=== PATIENT | female | born 1975 | race Caucasian/White ===

== ENCOUNTER 2016-07-25 06:19 | Emergency (ER) | payer BC, OTHER ==
[~2016-07-25] VITALS: Ht 154.9 cm; Wt 51.3 kg
[~2016-07-25 06:19] MED LIST: AMOX500C3 PO; ASTN; BACL10TA PO; BUPR-79 PO; BUSP15TA70 PO; CETI10TA10 PO; DICL1GEL12 TOP; IMTUNK PO; LINA1CAP2 PO; METH500T37 PO; METO25TA3 PO; METR0.7527 TOP; ONDA4TAB7 SL; PANT40TA PO; RIZA10TA19 PO
[2016-07-25 06:21] VITALS: Ht 154.9 cm; Wt 51.3 kg
[2016-07-25] MEDS ORDERED: HYDROmorphone INJ 1 MG/ML SYR IV STA (06:42)
[2016-07-25] MEDS ORDERED: ONDANSETRON INJ 2 MG/ML 2 ML VIAL IV STA (06:42)
[2016-07-25] MEDS ORDERED: SODIUM CHLORIDE 0.9% 1000ML 1,000 ML IV STA (06:42)
[2016-07-25 06:57] LABS: BASO % 0.1 %; BASO ABS # 0.02 K/uL (0-0.2); COMPLETE YES; EOS % 0.4 %; HEMATOCRIT 36.9 % (37-47); IG% 0.4 %; LYMPH % 10.3 %; LYMPH ABS # 1.44 K/uL (1.2-3.4); MEAN CELL VOLUME 89.6 fL (80-100); MEAN CORPUSCULAR HEMOGLOBIN 30.3 pg (25-34); MEAN CORPUSCULAR HGB CONC 33.9 g/dl (32-36); MEAN PLATELET VOLUME 9.1 fL (7.4-10.4); MONO % 8.6 %; NEUT % 80.2 %; PLATELET COUNT 342 K/uL (130-400); RED BLOOD COUNT 4.12 M/uL (4.2-5.4); WHITE BLOOD COUNT 13.99 K/uL (4.8-10.8)
[2016-07-25] MEDS ORDERED: LANS30CA63 PO (06:58)
[2016-07-25] MEDS ORDERED: ZFRODT4HP PO (06:58)
[2016-07-25] MEDS ORDERED: IMT100 PO (06:58)
--- NOTE | 2016-07-25 06:58 | EMERGENCY ROOM VISIT NOTE ---
History Report prepared by Sarah: Rufus Carbajal Under the Supervision of: Dr. Casimiro Delong M.D. First contact with patient: 06:31 Chief Complaint: ABDOMINAL PAIN Stated Complaint: PAIN IN LWR STOMACH, BLOOD IN URINE History of Present Illness The patient is a 41 year old female who presents to the Emergency Room with complaints of persistent right lower quadrant abdominal pain that started at 0515 this morning. The pain is rated 7/10 in severity. The patient also complains of hematuria and nausea starting at the same time as the abdominal pain. The patient's symptoms are consistent with past kidney stones. She has had a CT scan of her abdomen before. Source of History: patient Onset: 0515 this morning Position: abdomen (RLQ) Symptom Intensity: 7/10 Timing: other (persistent) Associated Symptoms: + nausea, + urinary symptoms Review of Systems See HPI for pertinent positives & negatives. A total of 10 systems reviewed and were otherwise negative. Past Medical & Surgical Medical Problems: (1) Anxiety (2) Depression (3) Gastroesophageal reflux disease (4) IRRITABLE BOWEL SYNDROME (5) Kidney stone Family History No pertinent family history Social History Smoking Status: Never Smoker Alcohol Use: none Marital Status: Housing Status: lives with family Occupation Status: employed Current/Historical Medications Scheduled Amoxicillin (Amoxil), 500 MG PO TID Bupropion (Wellbutrin Sr), 150 MG PO BID Buspirone Hcl (Buspar), 7.5 MG PO BID Lansoprazole (Prevacid), 30 MG PO QAM Metoprolol Succinate (Toprol Xl), 37.5 MG PO DAILY Sulfa/Trimethoprim (Bactrim Ds 800MG/160MG), 1 TAB PO BID Scheduled PRN Baclofen (Lioresal), 10 MG PO HS PRN for ABD PAIN Linaclotide (Linzess), 290 MCG PO DAILY PRN for BOWEL Methocarbamol (Robaxin), 500 MG PO DAILY PRN for SPASMS/PAIN Metronidazole (Topical) (Metrogel), 1 APPLN TOP for MD ORDER Ondansetron (Ondansetron Odt), 1-2 TABS PO TID PRN for Nausea Oxycodone/Acetaminophen 5MG/325MG (Percocet 5MG/325MG), 1-2 TAB PO Q4H PRN for Pain Sumatriptan Succinate (Imitrex), 100 MG PO UD PRN for Headache Allergies Coded Allergies: Erythromycin (Verified Allergy, Unknown, UNKNOWN, 07/25/16) Macrolides (Verified Allergy, Unknown, 07/25/16) Physical Exam Vital Signs Date Time Temp Pulse Resp B/P Pulse Ox O2 Delivery O2 Flow Rate FiO2 07/25/16 13:05 96 18 94/55 100 07/25/16 13:01 94/55 07/25/16 12:45 88 16 83/47 98 07/25/16 12:31 83 18 98/39 99 Room Air 07/25/16 10:38 36.5 78 18 120/78 99 Room Air 07/25/16 08:40 103 18 104/68 98 Room Air 07/25/16 06:21 36.6 116 24 119/65 100 Room Air Physical Exam GENERAL: Patient is a healthy-appearing well-nourished HEAD: Normocephalic atraumatic EYES: Ocular movements intact pupils equal and react to light OROPHARYNX mucous membranes are moist no exudates present no erythema or edema present NECK: Supple no nuchal rigidity CHEST: Good equal expansion LUNGS: Clear and equal to auscultation CARDIAC: Normal S1 and S2 ABDOMEN: Soft nontender no guarding. Benign abdomen. BACK: No CVA tenderness EXTREMITIES: No pain upon palpation normal muscle strength in all groups no clubbing cyanosis or edema NEURO: Patient is following commands is answering questions appropriately. Alert and oriented x3 Cranial Nerves 2-12 grossly intact Medical Decision & Procedures ER Provider Diagnostic Interpretation: Radiology results as stated below per my review and radiologist interpretation: KUB CLINICAL HISTORY: Left sided flank pain. Hematuria. COMPARISON STUDY: CT of the abdomen and pelvis May 12, 2012 and abdominal series December 26, 2013. FINDINGS: The bowel gas pattern is normal. There is a moderate amount of stool within the colon. Several left pelvic calcifications are unchanged since prior exam of November 04, 2013. No ureteral calculi are identified although sensitivity is diminished given stool within the colon. There may be punctate right renal calculi. IMPRESSION: 1. No ureteral calculi identified although sensitivity significantly diminished on this exam due to stool within the colon. 2. Possible punctate right renal calculi. Electronically signed by: Juan Manuel Waldrop M.D. 07/25/2016 7:45 AM Dictated Date/Time: 07/25/2016 7:42 AM EXAMINATION: RENAL ULTRASOUND CLINICAL HISTORY: Left flank pain COMPARISON STUDY: CT scan dated 05/12/2012 FINDINGS: The right kidney measures 10 cm. The left kidney measures 9.9 cm. There is no evidence of hydronephrosis. There are no renal masses. There is a 3 mm echogenic focus within the right kidney, likely representing a calculus. No bladder abnormalities are visualized. Bilateral ureteral jets were visualized. IMPRESSION : 1. Suspected 3 mm right renal calculus 2. No renal masses identified. No evidence of hydronephrosis. Electronically signed by: Dion Raines M.D. 07/25/2016 8:32 AM Dictated Date/Time: 07/25/2016 8:[address] ABD/PELVIS IV AND ORAL CONT CLINICAL HISTORY: Diffuse abdominal pain COMPARISON STUDY: 05/12/2012 TECHNIQUE: Following the IV administration of 92 mL of Optiray-320, CT scan of the abdomen and pelvis was performed from the lung bases to the proximal femurs. Images are reviewed in the axial, sagittal, and coronal planes. IV contrast was administered without complication. CT DOSE: 321.41 mGycm FINDINGS: Lower chest: There are minor dependent atelectatic changes. Liver: The contrast-enhanced liver is normal in size, contour, and attenuation. There is no intrahepatic biliary ductal dilatation. The hepatic veins and portal veins are patent. Gallbladder: Unremarkable. Spleen: Normal in size and attenuation. Pancreas: Unremarkable. Adrenal glands: Unremarkable. Kidneys: 2 punctate nonobstructing right renal calculi are visualized. There is no hydronephrosis. There is a 4 mm left renal hypodensity likely representing a cyst. Bowel: There are no transition zones indicate bowel obstruction. There is no acute diverticulitis. The appendix is felt to be normal. Peritoneum: There is no intraperitoneal free air or abdominal ascites. Vasculature: The abdominal aorta is normal in course and caliber. Adenopathy: None. Pelvic viscera: There is a 15 mm involuting left ovarian follicle. There is borderline bladder wall thickening Skeletal structures: No destructive osseous lesions are seen. IMPRESSION: 1. No evidence of bowel obstruction. No evidence of free air 2. Normal appendix 3. No evidence of acute diverticulitis 4. Nonobstructing punctate right renal calculus 5. Borderline bladder wall thickening. Correlation with urinalysis is recommended to exclude a cystitis Electronically signed by: Dion Raines M.D. 07/25/2016 12:18 PM Dictated Date/Time: 07/25/2016 12:13 PM Laboratory Results 07/25/16 06:35 Red Blood Count 4.12, Mean Corpuscular Volume 89.6, Mean Corpuscular Hemoglobin 30.3, Mean Corpuscular Hemoglobin Concent 33.9, Mean Platelet Volume 9.1, Neutrophils (%) (Auto) 80.2, Lymphocytes (%) (Auto) 10.3, Monocytes (%) (Auto) 8.6, Eosinophils (%) (Auto) 0.4, Basophils (%) (Auto) 0.1, Neutrophils # (Auto) 11.22, Lymphocytes # (Auto) 1.44, Monocytes # (Auto) 1.21, Eosinophils # (Auto) 0.05, Basophils # (Auto) 0.02 07/25/16 06:35 Test 07/25/16 06:35 07/25/16 07:30 White Blood Count 13.99 K/uL (4.8-10.8) Red Blood Count 4.12 M/uL (4.2-5.4) Hemoglobin 12.5 g/dL (12.0-16.0) Hematocrit 36.9 % (37-47) Mean Corpuscular Volume 89.6 fL (80-100) Mean Corpuscular Hemoglobin 30.3 pg (25-34) Mean Corpuscular Hemoglobin Concent 33.9 g/dl (32-36) Platelet Count 342 K/uL (130-400) Mean Platelet Volume 9.1 fL (7.4-10.4) Neutrophils (%) (Auto) 80.2 % Lymphocytes (%) (Auto) 10.3 % Monocytes (%) (Auto) 8.6 % Eosinophils (%) (Auto) 0.4 % Basophils (%) (Auto) 0.1 % Neutrophils # (Auto) 11.22 K/uL (1.4-6.5) Lymphocytes # (Auto) 1.44 K/uL (1.2-3.4) Monocytes # (Auto) 1.21 K/uL (0.11-0.59) Eosinophils # (Auto) 0.05 K/uL (0-0.5) Basophils # (Auto) 0.02 K/uL (0-0.2) RDW Standard Deviation 46.1 fL (36.4-46.3) RDW Coefficient of Variation 14.0 % (11.5-14.5) Immature Granulocyte % (Auto) 0.4 % Immature Granulocyte # (Auto) 0.05 K/uL (0.00-0.02) Anion Gap 9.0 mmol/L (3-11) Est Creatinine Clear Calc Drug Dose 61.5 ml/min Estimated GFR () 92.0 Estimated GFR (Non- 79.4 BUN/Creatinine Ratio 11.0 (10-20) Calcium Level 9.2 mg/dl (8.5-10.1) Total Bilirubin 0.4 mg/dl (0.2-1) Direct Bilirubin 0.1 mg/dl (0-0.2) Aspartate Amino Transf (AST/SGOT) 11 U/L (15-37) Alanine Aminotransferase (ALT/SGPT) 16 U/L (12-78) Alkaline Phosphatase 58 U/L (45-117) Total Protein 7.7 gm/dl (6.4-8.2) Albumin 3.8 gm/dl (3.4-5.0) Lipase 144 U/L (73-393) Urine Color DK YELLOW Urine Appearance TURBID (CLEAR) Urine pH >= 9.0 (4.5-7.5) Urine Specific [place] 1.006 (1.000-1.030) Urine Protein NEG (NEG) Urine Glucose (UA) NEG (NEG) Urine Ketones NEG (NEG) Urine Occult Blood 3+ (NEG) Urine Nitrite NEG (NEG) Urine Bilirubin NEG (NEG) Urine Urobilinogen NEG (NEG) Urine Leukocyte Esterase LARGE (NEG) Urine WBC (Auto) >30 /hpf (0-5) Urine RBC (Auto) >30 /hpf (0-4) Urine Hyaline Casts (Auto) /lpf (0-5) Urine Epithelial Cells (Auto) >30 /lpf (0-5) Urine Bacteria (Auto) 4+ (NEG) Urine Pathogenic Casts /lpf (0) Urine Test NEG (NEG) Labs reviewed by ED physician. Medications Administered Medications (Trade) Dose Ordered Sig/Ayo Route Start Time Stop Time Status Last Admin Dose Admin Hydromorphone HCl 1 mg 1 mg NOW STAT IV 07/25/16 06:42 07/25/16 06:44 DC 07/25/16 06:53 1 MG Sodium Chloride (Nss 1000ml) 1,000 ml @ 999 mls/hr Q1H1M STAT IV 07/25/16 06:42 07/25/16 07:42 DC 07/25/16 06:51 999 MLS/HR Ondansetron HCl (Zofran Inj) 4 mg NOW STAT IV 07/25/16 06:42 07/25/16 06:44 DC 07/25/16 06:53 4 MG Diphenhydramine HCl (Benadryl Inj) 25 mg NOW STAT IV 07/25/16 08:31 07/25/16 08:32 DC 07/25/16 08:50 25 MG Ceftriaxone Sodium (Rocephin Inj) 1 gm NOW STAT IV 07/25/16 08:46 07/25/16 08:48 DC 07/25/16 09:05 1 GM Tamsulosin HCl (Flomax Cap) 0.4 mg NOW ONCE PO 07/25/16 09:00 07/25/16 09:01 DC 07/25/16 09:04 0.4 MG Ketorolac Tromethamine (Toradol Inj) 30 mg NOW STAT IV 07/25/16 08:51 07/25/16 08:53 DC 07/25/16 09:04 30 MG Morphine Sulfate (MoRPHine SULFATE INJ) 4 mg NOW STAT IV 07/25/16 08:51 07/25/16 08:53 DC 07/25/16 09:05 4 MG Metoclopramide HCl (Reglan Inj) 10 mg NOW STAT IV 07/25/16 08:51 07/25/16 08:53 DC 07/25/16 09:04 10 MG Trimethoprim/ Sulfamethoxazole (Septra Ds 800/ 160MG Tab) 1 tab NOW STAT PO 07/25/16 09:01 07/25/16 09:02 DC 07/25/16 09:07 1 TAB ED Course 0641: Past medical records reviewed. The patient was evaluated in room A3. A complete history and physical examination was performed. 0642: Zofran 4 mg IV, NSS 1000 ml @ 999 mls/hr, Dilaudid 1 mg IV. 0718: The patient is much more comfortable. 0831: Benadryl 25 mg IV. 0840: Updated the patient. 0846: Rocephin 1 gm iv. 0900: Flomax 0.4 mg PO. 0901: Septra Ds 800/160 mg PO. 1230: Reassessed the patient. Discussed the findings with her. She verbalized understanding and agreement of the treatment plan. The patient is ready for discharge. Medical Decision Prior records/ancillary studies reviewed. Triage Nursing notes reviewed. The patient's history was concerning for abdominal pain. Differential diagnosis: Etiologies such as appendicitis, diverticulitis, PUD, biliary pathology, UTI, pancreatitis, obstruction, mesenteric ischemia, aortic pathology, infections, inflammatory bowel disease, renal colic, as well as others were entertained. This is a 41-year-old female who presents emergency department complaining of flank pain. The patient has a history of kidney stones and is having a large amount of blood in her urine. For this reason an IV was established, the patient was given Dilaudid. The patient was started on IV Rocephin and given Bactrim. The patient's KUB and ultrasound do not show any evidence of stone and I went back and reassessed the patient and discussed this with her. At this point she would like a CAT scan and so this was performed. CAT scan does not show any acute process. I will treat the patient for urinary tract infection. She was given pain medication in the emergency department. She will follow-up with her primary care physician. Impression Primary Impression: RLQ abdominal pain Additional Impressions: UTI (urinary tract infection) Constipation Scribe Attestation The scribe's documentation has been prepared under my direction and personally reviewed by me in its entirety. I confirm that the note above accurately reflects all work, treatment, procedures, and medical decision making performed by me. Departure Information Dispostion Home / Self-Care Prescriptions Oxycodone/Acetaminophen 5MG/325MG (PERCOCET 5MG/325MG) Tab 1-2 TAB PO Q4H Y for Pain, #14 TAB Prov: Casimiro Delong MD 07/25/16 Sulfa/Trimethoprim (Bactrim Ds 800MG/160MG) Tab 1 TAB PO BID for 10 Days, #20 TAB Prov: Casimiro Delong MD 07/25/16 Referrals Linwood Salazar M.D. (PCP) Forms Call Back Authorization, HOME CARE DOCUMENTATION FORM, IMPORTANT VISIT INFORMATION, School Instructions, Work Instructions Patient Instructions Constipation, ED Abd Pain Unkn Cause Fem, ED UTI Cystitis Female, My [facility] Additional Instructions You received narcotic or benzodiazepene medication while in the emergency room today. Do not drive, operate heavy machinery, or drink alcohol under the influence of this medication. Take 600 mg Ibuprofen every 6 hours Take Percocet for breakthrough pain You have been examined and treated today on an emergency basis only. This is not a substitute for, or an effort to provide, complete comprehensive medical care. It is impossible to recognize and treat all injuries or illnesses in a single emergency department visit. It is therefore important that you follow up closely with Dr Salazar. Call as soon as possible for an appointment. Thank you for your time and consideration. I look forward to speaking with you again soon. Please don't hesitate to call us if you have any questions. Problem Qualifiers Additional Impressions: UTI (urinary tract infection) Urinary tract infection type: acute cystitis Hematuria presence: with hematuria Qualified Codes: N30.01 - Acute cystitis with hematuria Constipation Constipation type: slow transit constipation Qualified Codes: K59.01 - Slow transit constipation
[2016-07-25 07:16] LABS: CALCIUM 9.2 mg/dl (8.5-10.1); CREATININE 0.89 mg/dl (0.60-1.20); POTASSIUM 3.3 mmol/L (3.5-5.1)
--- NOTE | 2016-07-25 07:46 | DIAGNOSTIC IMAGING REPORT ---
KUB CLINICAL HISTORY: Left sided flank pain. Hematuria. COMPARISON STUDY: CT of the abdomen and pelvis May 12, 2012 and abdominal series December 26, 2013. FINDINGS: The bowel gas pattern is normal. There is a moderate amount of stool within the colon. Several left pelvic calcifications are unchanged since prior exam of November 04, 2013. No ureteral calculi are identified although sensitivity is diminished given stool within the colon. There may be punctate right renal calculi. IMPRESSION: 1. No ureteral calculi identified although sensitivity significantly diminished on this exam due to stool within the colon. 2. Possible punctate right renal calculi. Electronically signed by: Juan Mnauel Waldrop M.D. 07/25/2016 7:45 AM Dictated Date/Time: 07/25/2016 7:42 AM
[2016-07-25] MEDS ORDERED: DiphenhydrAMINE HCL 50 MG/ML VIAL IV STA (08:31)
--- NOTE | 2016-07-25 08:33 | DIAGNOSTIC IMAGING REPORT ---
EXAMINATION: RENAL ULTRASOUND CLINICAL HISTORY: Left flank pain COMPARISON STUDY: CT scan dated 05/12/2012 FINDINGS: The right kidney measures 10 cm. The left kidney measures 9.9 cm. There is no evidence of hydronephrosis. There are no renal masses. There is a 3 mm echogenic focus within the right kidney, likely representing a calculus. No bladder abnormalities are visualized. Bilateral ureteral jets were visualized. IMPRESSION : 1. Suspected 3 mm right renal calculus 2. No renal masses identified. No evidence of hydronephrosis. Electronically signed by: Dion Raines M.D. 07/25/2016 8:32 AM Dictated Date/Time: 07/25/2016 8:25 AM
[2016-07-25] MEDS ORDERED: CEFTRIAXONE SOD INJ 1 GM ADDVIAL IV STA (08:46)
[2016-07-25] MEDS ORDERED: MoRPHine SULFATE 4 MG/ML 1 ML CARP\\VIAL IV STA (08:51)
[2016-07-25] MEDS ORDERED: KETOROLAC TROMETHAMINE 30 MG/ML VIAL IV STA (08:51)
[2016-07-25] MEDS ORDERED: METOCLOPRAMIDE HCL INJ 5 MG/ML 2 ML VIAL IV STA (08:51)
[2016-07-25] MEDS ORDERED: OPTIRAY 320 IV PRN (09:00)
[2016-07-25] MEDS ORDERED: TAMSULOSIN HCL 0.4 MG CAP PO ONE (09:00)
[2016-07-25] MEDS ORDERED: SULFAMETHOXAZOLE/TRIMETHOPRIM DS 800/160MG TAB PO STA (09:01)
[2016-07-25 09:11] LABS: URINE APPEARANCE TURBID (CLEAR); URINE BILIRUBIN NEG (NEG); URINE EPITHELIAL CELL AUTO >30 /lpf (0-5); URINE NITRITE NEG (NEG); URINE PH >= 9.0 (4.5-7.5); URINE SPECIFIC GRAVITY 1.006 (1.000-1.030); UROBILINOGEN NEG (NEG)
[2016-07-25 09:18] LABS: MANUAL MICROSCOPIC REQUIRED? NO; REVIEW REQ? YES; URINE COLOR DK YELLOW
[2016-07-25 09:37] LABS: SULFASALICYLIC ACID NEG (NEG)
[2016-07-25 10:38] VITALS: TEMP 36.5
--- NOTE | 2016-07-25 12:20 | DIAGNOSTIC IMAGING REPORT ---
CT ABD/PELVIS IV AND ORAL CONT CLINICAL HISTORY: Diffuse abdominal pain COMPARISON STUDY: 05/12/2012 TECHNIQUE: Following the IV administration of 92 mL of Optiray-320, CT scan of the abdomen and pelvis was performed from the lung bases to the proximal femurs. Images are reviewed in the axial, sagittal, and coronal planes. IV contrast was administered without complication. CT DOSE: 321.41 mGycm FINDINGS: Lower chest: There are minor dependent atelectatic changes. Liver: The contrast-enhanced liver is normal in size, contour, and attenuation. There is no intrahepatic biliary ductal dilatation. The hepatic veins and portal veins are patent. Gallbladder: Unremarkable. Spleen: Normal in size and attenuation. Pancreas: Unremarkable. Adrenal glands: Unremarkable. Kidneys: 2 punctate nonobstructing right renal calculi are visualized. There is no hydronephrosis. There is a 4 mm left renal hypodensity likely representing a cyst. Bowel: There are no transition zones indicate bowel obstruction. There is no acute diverticulitis. The appendix is felt to be normal. Peritoneum: There is no intraperitoneal free air or abdominal ascites. Vasculature: The abdominal aorta is normal in course and caliber. Adenopathy: None. Pelvic viscera: There is a 15 mm involuting left ovarian follicle. There is borderline bladder wall thickening Skeletal structures: No destructive osseous lesions are seen. IMPRESSION: 1. No evidence of bowel obstruction. No evidence of free air 2. Normal appendix 3. No evidence of acute diverticulitis 4. Nonobstructing punctate right renal calculus 5. Borderline bladder wall thickening. Correlation with urinalysis is recommended to exclude a cystitis Electronically signed by: Dion Raines M.D. 07/25/2016 12:18 PM Dictated Date/Time: 07/25/2016 12:13 PM
[2016-07-25] MEDS ORDERED: OXYC-57 PO (12:38)
[2016-07-25] MEDS ORDERED: SULF800T23 PO (12:38)
[2016-07-25 13:05] VITALS: BP 94/55; PULSE 96; O2SAT 100
== END 2016-07-25 13:07 | disposition home or self-care (01) ==
LOC: C.EDB 06:21 → C.EDA 13:07
DX: N39.0 Urinary tract infection, site not specified (principal); K59.01 Slow transit constipation; F41.9 Anxiety disorder, unspecified; F32.9 Major depressive disorder, single episode, unspecified; K21.9 Gastro-esophageal reflux disease without esophagitis; Z87.442 Personal history of urinary calculi; Z79.899 Other long term (current) drug therapy

== ENCOUNTER → 2016-11-08 | Outpatient (CLI) | payer BC, OTHER ==
[~2016-11-08] MED LIST changes: -ASTN; +BUSP1TAB46 PO; -CETI10TA10 PO; +CLR10 PO; +DICL1GEL12 EXT; -DICL1GEL12 TOP; +IMT100 PO; -IMTUNK PO; +LANS30CA12 PO; +LANS30CA63 PO; +MONT1TAB3 PO; +ONDA4TAB65 PO; -ONDA4TAB7 SL; +OXYC-57 PO; -PANT40TA PO; -RIZA10TA19 PO; +SUMA100T15 PO; +ZFRODT4HP PO
--- NOTE | 2016-11-08 09:59 | DIAGNOSTIC IMAGING REPORT ---
RIGHT SHOULDER MIN 2 VIEWS CLINICAL HISTORY: Right shoulder pain COMPARISON: 07/21/2015 DISCUSSION: No fractures or dislocations are visualized. There is an enlarging peritendinous calcification, consistent with calcific tendinopathy. There are no erosive or destructive changes. IMPRESSION: Calcific tendinopathy. No acute fractures identified. Electronically signed by: Dion Raines M.D. 11/08/2016 9:58 AM Dictated Date/Time: 11/08/2016 9:57 AM
== END | disposition home or self-care (01) ==
LOC: C.RDSM 09:42
PROVIDERS: ATTEND Physician Assistant
DX: M25.511 Pain in right shoulder (principal); M75.31 Calcific tendinitis of right shoulder

== ENCOUNTER → 2017-03-25 | Outpatient (CLI) | payer BC, OTHER ==
[~2017-03-25] MED LIST changes: -BUSP1TAB46 PO; -CLR10 PO; -DICL1GEL12 EXT; +GADAVIST IV PRN; -LANS30CA12 PO; -MONT1TAB3 PO; -ONDA4TAB65 PO; -OXYC-57 PO; -SUMA100T15 PO
--- NOTE | 2017-03-25 12:15 | DIAGNOSTIC IMAGING REPORT ---
R INJECTION SHOULDER PRE MRI FLUOROSCOPY TIME: 22 seconds CLINICAL HISTORY: 42 years-old Female with R SHOULDER IMPINGEMENT SYNDROME. Acute right shoulder pain PROCEDURE: After obtaining written informed consent, the patient was placed supine on the fluoroscopy table. A suitable site for needle insertion was marked using fluoroscopic guidance. The right shoulder was prepped and draped in the usual sterile fashion. 1% lidocaine was used for skin, subcutaneous and deep soft tissue anesthesia. Under intermittent fluoroscopic guidance, a 22 gauge 2.5 inch spinal needle was inserted into the right glenohumeral joint. A total of 10 cc of one-to-one mixture of dilute Magnevist (0.1 cc in 10 cc saline) and Optiray 300 were injected. The needle was then removed. There were no apparent complications. The patient did however report some dizziness after the procedure and sat with the cardiovascular technologist for a few minutes on the edge of the fluoroscopy table before proceeding to MRI. The patient was then transported to MR for further imaging. IMPRESSION: Fluoroscopic-guided right shoulder arthrogram without immediate complication. MR portion of the examination will be dictated separately. The above report was generated using voice recognition software. It may contain grammatical, syntax or spelling errors. Electronically signed by: Jg Chatman M.D. 03/25/2017 12:13 PM Dictated Date/Time: 03/25/2017 12:11 PM
--- NOTE | 2017-03-25 13:17 | DIAGNOSTIC IMAGING REPORT ---
R UPPER EXTREMITY JOINT W/ CLINICAL HISTORY: R SHOULDER IMPINGEMENT SYNDROME TECHNIQUE: Multi axial MRI acquisition post shoulder arthrography COMPARISON STUDY: None FINDINGS: Signal characteristics the osseous structures are considered unremarkable. Findings of considerable calcific supraspinatus tendinitis. Mild reactive edematous change of the supraspinatus tendon with no evidence for full-thickness rotator cuff tear. The infraspinatus and subscapularis tendons are unremarkable. Biceps tendon is intact within the bicipital groove. There is a very slight blunting of the anterior inferior glenoid labrum. There is a small partial tear of the anterior superior glenoid labrum. There is no evidence for abnormal mass or collection. IMPRESSION: 1. Small SLAP tear anterior superior glenoid labrum. 2. Prominent calcific supraspinatus tendinitis. 3. No evidence for full-thickness rotator cuff tear. The above report was generated using voice recognition software. It may contain grammatical, syntax or spelling errors. Electronically signed by: Andrea Olguin M.D. 03/25/2017 1:16 PM Dictated Date/Time: 03/25/2017 12:56 PM
== END | disposition home or self-care (01) ==
LOC: C.MRIBC 10:45
PROVIDERS: ATTEND Physician Assistant
DX: M75.31 Calcific tendinitis of right shoulder (principal); M75.41 Impingement syndrome of right shoulder

== ENCOUNTER → 2017-04-22 | Outpatient (CLI) | payer BC, OTHER ==
[~2017-04-22] MED LIST changes: +BUSP1TAB46 PO; +DICL1GEL12 EXT; -GADAVIST IV PRN; +LANS30CA12 PO; +MONT1TAB3 PO; +ONDA4TAB65 PO; +SUMA100T15 PO
[2017-04-22 18:35] LABS: BASO % 0.1 %; BASO ABS # 0.01 K/uL (0-0.2); COMPLETE YES; EOS % 0.7 %; HEMATOCRIT 37.3 % (37-47); IG% 0.1 %; LYMPH % 24.4 %; LYMPH ABS # 1.82 K/uL (1.2-3.4); MEAN CELL VOLUME 92.6 fL (80-100); MEAN CORPUSCULAR HEMOGLOBIN 29.8 pg (25-34); MEAN CORPUSCULAR HGB CONC 32.2 g/dl (32-36); MEAN PLATELET VOLUME 9.6 fL (7.4-10.4); MONO % 11.5 %; NEUT % 63.2 %; PLATELET COUNT 334 K/uL (130-400); RED BLOOD COUNT 4.03 M/uL (4.2-5.4); WHITE BLOOD COUNT 7.45 K/uL (4.8-10.8)
== END | disposition home or self-care (01) ==
LOC: C.CPL 17:21
PROVIDERS: ATTEND Physician Assistant
DX: Z01.818 Encounter for other preprocedural examination (principal)

== ENCOUNTER → 2017-05-17 | Day surgery (SDC) | payer BC, OTHER ==
[2017-04-23 08:47] VITALS: Ht 154.9 cm; Wt 51.4 kg
[~2017-05-17] VITALS: Ht 154.9 cm; Wt 51.4 kg
[~2017-05-17] MED LIST changes: -AMOX500C3 PO; +ATROPINE SULFATE 0.1 MG/ML 5ML SYR IV PRN; -BACL10TA PO; +BUPIVACAINE 0.5 % 5 MG/1 ML MPF 30ML VIAL ONE; +BUPIVACAINE/EPINEPHRINE 0.25% 1:200,000 30 ML VIAL ONE; -BUSP15TA70 PO; +CEFAZOLIN 1000MG IV PUSH 5 ML IV SCH; +CLR10 PO; +DEXAMETHASONE SOD INJ 4 MG/ML VIAL ONE; +EpHEDrine SULFATE INJ 50 MG/ML AMP IV PRN; +EpINEphrine HCL INJ 1 MG/ML 5ML SYRINGE ONE; +EpINEphrine INJ 1MG/ML AMP 1 MG/ML AMP ONE; +FENTANYL CITRATE INJ 50 MCG/1 ML 2 ML VIAL IV PRN; +FENTANYL CITRATE INJ 50 MCG/1 ML 2 ML VIAL ONE; +GLYCOPYRROLATE INJ 0.2 MG/ML VIAL ONE; -IMT100 PO; +LACTATED RINGER'S 1000ML 1,000 ML IV SCH; -LANS30CA63 PO; +LIDOCAINE HCL 2% 2 ML VIAL (20MG/ML) ONE; +LIDOCAINE/EPINEPHRINE 1% INJ 50 ML VIAL ONE; +MIDAZOLAM HCL 1 MG/ML 2ML VIAL IV ONE; +MIDAZOLAM HCL 1 MG/ML 2ML VIAL ONE; +MoRPHine SULFATE 2 MG/ML CARP IV PRN; +MoRPHine SULFATE 4 MG/ML 1 ML CARP\\VIAL IV PRN; +NEOSTIGMINE METHYLSULFATE 5 MG/5 ML SYR ONE; +ONDANSETRON INJ 2 MG/ML 2 ML VIAL IV PRN; +ONDANSETRON INJ 2 MG/ML 2 ML VIAL ONE; +OXYCODONE/ACETAMINOPHEN 5-325 TAB PO PRN; +PROPOFOL IV EMULSION 10 MG/ML 20 ML VIAL IV ONE; -ZFRODT4HP PO
--- NOTE | 2017-05-17 07:05 | History & Physical Bridge - SC ---
H&P Re-Evaluation Bridge Note: I have examined the patient, reviewed the History & Physical and in the interval since the performance of the History & Physical I have noted the following changes of clinical significance: No changes noted
--- NOTE | 2017-05-17 11:09 | [facility] Post Operative Brief Note ---
Immediate Operative Summary Operative Date May 17, 2017. Pre-Operative Diagnosis Right Shoulder Calcific Tendonosis and Impingement Post-Operative Diagnosis Same Procedure(s) Performed 1) Right Shoulder Arthroscopic Rotator Cuff Repair. 2) Extensive Debridement: Rotator cuff, anterior Labrum. 3) Subacromial Decompression. 4) Exam Under Anesthesia. Surgeon Dr. Ahumada Perinatal Instructor Surgeon(s) Dr. Looney Estimated Blood Loss 4ml Findings As above. Fluids (cc crystalloids) 1200 Specimens None Drains n/a Anesthesia GET + Interscalene Nerve block Complication(s) None Disposition Recovery Room / PACU (Stable)
--- NOTE | 2017-05-17 11:13 | Discharge Instructions-SurgCtr ---
Discharge Instructions Date of Service May 17, 2017. Visit Reason for Visit: Right Shoulder Calcific Tendonosis, Impingement Discharge Discharge Diagnosis / Problem: Status post Right shoulder arthroscopy Rotator cuff repair, extensive debri Discharge Goals Goal(s): Decrease discomfort, Improve function, Increase independence Medications Stopped Medications Name(s): Only took 4 medications this morning. Activity Recommendations Activity Limitations: per Instructions/Follow-up section May Resume Sexual Activity: when tolerated Shower/Bathe: may shower/bathe in 3 days Driving or Machine Use: Not while on Narcotics or in Sling No lifting more than cup of coffee. Anesthesia . Post Anesthesia Instructions: If you have had General Anesthesia or IV Sedation: * Do not drive today. * Resume driving when surgeon permits. * Do not make important decisions or sign legal documents today. * Call surgeon for: 1. Temperature elevations greater than 101 degrees F. 2. Uncontrollable pain. 3. Excessive bleeding. 4. Persistent nausea and vomiting. 5. Medication intolerance (nausea, vomiting or rash). * For nausea and vomiting use only clear liquids such as: tea, soda, bouillon until nausea subsides, then gradually increase diet as tolerated. * If you have any concerns or questions, call your surgeon's office. If physician is unavailable and it is an emergency, call 911 or go to the nearest emergency room. . Instructions / Follow-Up Instructions / Follow-Up Dr. Ahumada in 10-15 days. PT in 3-5 days. Diet Recommendations Home Diet: resume previous diet Procedures Procedures Performed: 1) Right Shoulder Arthroscopic Rotator Cuff Repair. 2) Extensive Debridement: Rotator cuff, anterior Labrum. 3) Subacromial Decompression. 4) Exam Under Anesthesia. Pending Studies Studies pending at discharge: no Medical Emergencies . Who to Call and When: Medical Emergencies: If at any time you feel your situation is an emergency, please call 911 immediately. . Non-Emergent Contact Non-Emergency issues call your: Surgeon Call Non-Emergent contact if: temperature is above 101.5, your pain is not controlled, wound has increased drainage, wound has increased redness . . "Provider Documentation" section prepared by Presley Ahumada. .
--- NOTE | 2017-05-17 11:14 | [facility] Operative Report ---
Operative Report Operative Date May 17, 2017. Pre-Operative Diagnosis Right Shoulder Calcific Tendonosis and Impingement Post-Operative Diagnosis Same Procedure(s) Performed 1) Right Shoulder Arthroscopic Rotator Cuff Repair. 2) Extensive Debridement: Rotator cuff, anterior Labrum. 3) Subacromial Decompression. 4) Exam Under Anesthesia. Surgeon Dr. Ahumada Clinical Education Assistant Surgeon(s) Dr. Looney Estimated Blood Loss 4ml Findings The Right shoulder was then examined under anesthesia and it exhibited: Forward flexion and abduction to 160; external rotation 90; internal rotation 50. There was no noted instability. Posterior and anterior translation was 1+ and they had no sulcus sign and was symmetric to their other side. The diagnostic arthroscopy commenced with the following findings: 1. The biceps anchor was intact. 2. The anterior labrum had fraying from the 2 to 3:00 position. 3. The inferior labrum was intact. 4. The inferior pouch showed no loose bodies. 5. The posterior labrum was intact. 6. The articular surface of the glenoid was normal. 7. The articular surface of humeral head was normal. 8. The long Head of the Biceps was intact. 9. The Subscapularis tendon was intact. 10. The Supraspinatus tendon had an intact footprint. There was evidence of calcific tendinosis on the bursal side. 11. The Infraspinatus and Teres Minor had an intact footprint. There was evidence of significant calcific tendinosis on the bursal side. After removal, the footprint remained intact, but there was a split between the infraspinatus and supraspinatus tendons. 12. The Subacromial space showed extensive bursitis and the previous mentioned calcific tendinosis. There is a small bony spur from the acromion. Fluids (cc crystalloids) 1200 Specimens None Drains n/a Anesthesia GET + Interscalene Nerve block Complication(s) None Disposition Recovery Room / PACU (Stable) Implants #2 FiberWire x 2 Indications This is a pleasant 42-year-old female who has been having long-standing right shoulder pain that has failed conservative management. They have MRI and clinical findings suggestive of calcific tendinosis, impingement and possible SLAP tear. After a lengthy discussion regarding their options of conservative versus operative management, they have elected to proceed with surgery. The risks of surgery were discussed and include but not limited to: Infection, bleeding, nerve damage, continued pain, progression of arthritis, stiffness, decreased level of activity, and deep vein thrombosis. The patient understood all of their options and the risks of surgery and would like to proceed. The informed consent was signed. Description of Procedure The patient was taken to the operating room and following administration of her interscalene nerve block and general anesthetic, a multidisciplinary time-out was performed identifying my initials on the right shoulder as the correct and operative limb. The patient was then placed in beach chair position with all of their bony prominences well-padded. They were then prepped and draped in the usual orthopedic sterile fashion. All of the bony landmarks were marked as well as the planned incisions. The planned incisions were injected with a 50:50 mixture of 0.5% Marcaine plain and 1% Lidocaine with Epinephrine for a total of 8 cc. Then using a spinal needle which was placed intra-articularly into the glenohumeral joint and insufflated to 35 cc and there was noted appropriate back flow, an additional 10 cc were placed. The standard posterior portal was made with an 11-blade. Trocar was introduced into the glenohumeral joint in the standard fashion. Using a spinal needle, the anterior portal was placed lateral to the coracoid under direct visualization between the Long Head of the Biceps and Subscapularis. A 7mm cannula was then placed. The intra-articular portion of shoulder was addressed first with debriding any fraying from the labrum with mechanical shaver. It was probed and found to be intact. The arthroscope had also been removed from the posterior portal and placed anteriorly for better posterior visualization of the labrum and external rotators of the shoulder. The arthroscope was then placed subacromially. There was significant bursitis noted. A lateral portal was created under direct visualization with a spinal needle. Once the bursitis was removed, the bursal side of the rotator cuff was value waited and there was noted calcification within the supraspinatus and infraspinatus. This was debrided with a combination of mechanical shaver, probe, elevator. As much of the calcification was removed as possible. A spinal needle was placed through the split that was created between the infraspinatus and supraspinatus and visualized intra-articularly through the arthroscope which was replaced through the anterior portal. The footprint remained intact. At that point it was decided to do a [id number] repair of the gap between the infra-and supraspinatus. This was performed with a #2 FiberWire using a BirdBeak for passing 2 sutures. Arthroscopic knot were tied in the standard fashion. The rotator cuff was probed and found to be intact. The small bony spur on the acromion was removed with a 5 mm bur using a cutting block technique in the standard fashion. All of the instruments were removed. The portal sites were closed with 3-0 and 4-0 Prolene in a standard fashion. Xeroform was placed overtop followed by 4 x 4's, ABDs, and foam tape. The patient was placed in a sling. The sponge and needle counts were correct. POSTOPERATIVE INSTRUCTIONS: The patient will follow-up with physical therapy in 3-5 days. The patient will wear sling for 4 weeks. The patient will follow-up with me in 10 to 15 days. I attest to the content of the Intraoperative Record and any orders documented therein. Any exceptions are noted below.
[2017-05-17 12:40] VITALS: TEMP 36.4
[2017-05-17 13:13] VITALS: BP 100/57; PULSE 74; O2SAT 96
--- NOTE | 2017-05-17 13:36 | Anesthesia Progress Nt - [facility] ---
Anesthesia Post Op Note Date & Time May 17, 2017 at 13:35 Vital Signs Pain Intensity: 0 Vital Signs Past 12 Hours Date Time Temp Pulse Resp B/P (MAP) Pulse Ox O2 Delivery O2 Flow Rate FiO2 05/17/17 13:13 74 16 100/57 (71) 96 Room Air 05/17/17 12:40 36.4 90 16 107/69 (82) 99 Room Air 05/17/17 12:17 80 18 05/17/17 12:17 82 18 97 05/17/17 12:16 113/69 05/17/17 12:12 84 24 98 05/17/17 12:12 84 24 05/17/17 12:11 99/74 05/17/17 12:07 77 23 05/17/17 12:07 76 23 100 05/17/17 12:06 36.8 88 16 99/74 98 Room Air 05/17/17 12:06 103/66 05/17/17 12:02 79 13 05/17/17 12:02 80 13 100 05/17/17 12:01 116/85 05/17/17 11:57 93 18 100 05/17/17 11:57 93 18 05/17/17 11:56 113/69 05/17/17 11:52 74 16 05/17/17 11:52 73 16 100 05/17/17 11:51 114/65 05/17/17 11:48 71 14 100 05/17/17 11:48 71 14 05/17/17 11:46 114/68 05/17/17 11:43 75 13 100 05/17/17 11:43 75 13 05/17/17 11:41 119/75 05/17/17 11:38 87 28 100 05/17/17 11:38 87 28 05/17/17 11:36 107/85 05/17/17 11:33 102 34 05/17/17 11:33 107 34 100 05/17/17 11:32 109/76 05/17/17 11:28 96 17 107/72 100 05/17/17 11:28 96 17 05/17/17 11:28 36.8 99 24 107/72 100 Diffusion Mask 6 05/17/17 08:23 0 05/17/17 08:18 65 05/17/17 08:18 65 0 100 05/17/17 08:13 71 05/17/17 08:13 71 24 100 05/17/17 08:08 97 40 96 05/17/17 08:08 84 05/17/17 08:03 86 33 100 05/17/17 08:03 86 05/17/17 08:02 110/79 (89) 05/17/17 07:58 83 18 100 05/17/17 07:58 80 05/17/17 07:53 0 05/17/17 06:51 36.6 73 18 99/71 (80) 100 Room Air Notes Mental Status: alert / awake / arousable, participated in evaluation Pt Amnestic to Procedure: Yes Nausea / Vomiting: adequately controlled Pain: adequately controlled Airway Patency, RR, SpO2: stable & adequate BP & HR: stable & adequate Hydration State: stable & adequate Anesthetic Complications: no major complications apparent
== END | disposition home or self-care (01) ==
LOC: X.SURG 06:28
PROVIDERS: ATTEND Orthopaedic Surgery Sports Medicine
DX: M25.811 Other specified joint disorders, right shoulder (principal); M75.31 Calcific tendinitis of right shoulder; I34.1 Nonrheumatic mitral (valve) prolapse; R00.9 Unspecified abnormalities of heart beat; K21.9 Gastro-esophageal reflux disease without esophagitis; Z79.899 Other long term (current) drug therapy; G43.909 Migraine, unspecified, not intractable, without status migrainosus; F41.9 Anxiety disorder, unspecified; F32.9 Major depressive disorder, single episode, unspecified